=== PATIENT | female | born 1995 | race Caucasian/White ===

== ENCOUNTER 2019-03-23 12:53 | Emergency (ER) | payer OTHER ==
[2019-03-23 13:21] VITALS: BP 111/60; PULSE 121; TEMP 100.8; BMI 23.4
[2019-03-23] MEDS ORDERED: IBUPROFEN 600 MG TABLET (FP) PO ONE ×2 (14:14→14:20)
--- NOTE | 2019-03-23 14:14 | PDOC ---
History of Present Illness - General Chief Complaint: Cold Symptoms Stated Complaint: BACK PAIN/FEVER Time Seen by Provider: 03/23/19 13:29 History Source: Patient - History of Present Illness Initial Comments: 03/23/19 14:15 Chief complaint: Body aches and cough Patient 24-year-old female with history of asthma, previous hospitalizations but no ICU or intubation, has been on steroids in the past as documented in the EMR with 1 day of fever, body aches and cough. Patient states she was wheezing , used her nebulizer at home. Patient has not taken any antipyretics today. Patient is not in any respiratory distress GENERAL/CONSTITUTIONAL: No fever, weakness. dizziness HEAD, EYES, EARS, NOSE AND THROAT: No change in vision. No ear pain or discharge. No sore throat. CARDIOVASCULAR: No chest pain RESPIRATORY: No shortness of breath +cough GASTROINTESTINAL: No pain, nausea, vomiting, diarrhea or constipation GENITOURINARY: No dysuria MUSCULOSKELETAL: No neck or back pain SKIN: No rash NEUROLOGIC: No headache, vertigo, loss of consciousness, or loss of sensation. GENERAL: The patient is awake, alert, and fully oriented, in no acute distress. HEAD: Normal with no signs of trauma. EYES: Pupils equal, round and reactive to light, sclera anicteric, conjunctiva clear. ENT: pharynx: no erythema, no exudate, uvula midline NECK: supple CHEST: clear, nontender, rr ABD: soft, nontender BACK: no tenderness or signs of injury EXTREMITIES: Normal range of motion, no edema. NEUROLOGICAL: Normal speech, normal gait. SKIN: Warm, Dry Past History - Past Medical History Allergies/Adverse Reactions: Allergies Allergy/AdvReac Type Severity Reaction Status Date / Time No Known Allergies Allergy Verified 11/13/12 16:05 Home Medications: Ambulatory Orders Amox-Tr/K Cl [Augmentin 250-62.5mg/5mL Suspension -] 10 ml PO BID #200 ml Ibuprofen Oral Suspension [Motrin Oral Suspension -] 400 mg PO Q6H #1 bottle Prednisolone [Prelone] 15 mg PO BID #40 ml 11/13/12 Albuterol Sulfate [Albuterol Sulfate Hfa] 8.5 gm IH Q4H PRN #1 hfa.[email or web address] Fluticasone Propionate [Flovent Hfa] 44 mcg IH BID #1 inh 03/23/19 Oseltamivir Phosphate [Tamiflu] 75 mg PO BID #10 capsule 03/23/19 Asthma: Yes COPD: No - Psycho Social/Smoking Cessation Hx Smoking Status: No Smoking History: Current every day smoker Number of Cigarettes Smoked Daily: 3 Information on smoking cessation initiated: No Hx Alcohol Use: No Drug/Substance Use Hx: No *Physical Exam - Vital Signs Last Vital Signs Temp Pulse Resp BP Pulse Ox 100.8 F H 121 H 19 111/60 99 03/23/19 13:19 03/23/19 13:19 03/23/19 13:19 03/23/19 13:19 03/23/19 13:19 Medical Decision Making - Medical Decision Making 03/23/19 14:17 24-year-old with history of asthma as documented previously in HPI with 1 day of fever, cough, asthma symptoms. Use nebulizer at home last night. No wheezing now. No signs of respiratory distress or concerning clinical findings. Patient likely has flu versus upper respiratory viral illness. Given that is 1 day of symptoms, offered Tamiflu which patient said she will take. Will give Motrin here. No other work-up is indicated. Discussed issues, findings, results, applicable medications and treatments and follow-up. All these were understood and all questions were answered Discharge - Discharge Information Problems reviewed: Yes Clinical Impression/Diagnosis: Flu-like symptoms Condition: Stable Disposition: HOME - Admission No - Additional Discharge Information Prescriptions: Albuterol Sulfate [Albuterol Sulfate Hfa] 8.5 gm IH Q4H PRN #1 hfa.aer.ad PRN Reason: Wheezing Fluticasone Propionate [Flovent Hfa] 44 mcg IH BID #1 inh Oseltamivir Phosphate [Tamiflu] 75 mg PO BID #10 capsule - Follow up/Referral - Patient Discharge Instructions Patient Printed Discharge Instructions: Influenza Additional Instructions: Drink 2-3 L of water daily Take Tamiflu as directed Use albuterol, either inhaler or nebulizer every 4 hours for any wheezing Use Flovent twice a day, every day for at least the next week or 2 Take Tylenol 650 mg every 4 hours or Motrin 600 mg every 6 hours for fever and pain Return to the nearest ER if short of breath, unable to swallow or feeling sicker Followup with your doctor in one to 2 days - Post Discharge Activity
== END 2019-03-23 14:30 | disposition home or self-care (01) ==
LOC: JERFT 12:53
DX: J11.1 Influenza due to unidentified influenza virus with other respiratory manifestations (principal); J45.909 Unspecified asthma, uncomplicated; F17.210 Nicotine dependence, cigarettes, uncomplicated
CPT/HCPCS: 99281-25

== ENCOUNTER 2020-08-16 00:37 | Emergency (ER) | payer OTHER ==
[2020-08-16] MEDS: ALBUTEROL SO4 2.5/IPRATROPIUM 0.5 INH SOL 3 ML VIAL.NEB. NEB SCH (01:14)
[2020-08-16 01:17] VITALS: BMI 19.2
[2020-08-16] MEDS ORDERED: methylPREDNISolone NA SUCC 125 MG/2 ML VIAL IVPB ONE (02:30)
[2020-08-16] MEDS ORDERED: methylPREDNISolone NA SUCC 125 MG/2 ML VIAL ONE (02:33)
[2020-08-16] MEDS: ALBUTEROL SO4 0.083% IH SOL 2.5 MG/3 ML VIAL.NEB. NEB SCH (02:45)
[2020-08-16 02:52] LABS: BASO % 0.5 % (0-2.0); EOS % 1.3 % (0-4.5); HEMATOCRIT 36.2 % (32.4-45.2); HEMOGLOBIN 12.4 GM/dL (10.7-15.3); LYMPH % 15.7 % (8-40); MCHC 34.3 g/dl (32.0-36.0); MEAN CELL VOLUME 87.4 fl (80-96); MEAN PLT VOLUME 8.1 fl (7.5-11.1); MONO % 13.1 % (3.8-10.2); NEUT % 69.4 % (42.8-82.8); PLATELET COUNT 199 10^3/uL (134-434); RBC 4.14 M/mm3 (3.60-5.2); RDW 12.9 % (11.6-15.6); WHITE BLOOD COUNT 4.8 K/mm3 (4.0-10.0)
[2020-08-16 03:12] LABS: ALBUMIN 3.6 g/dl (3.4-5.0); BLOOD UREA NITROGEN 9.8 mg/dL (7-18); CALCIUM 8.5 mg/dL (8.5-10.1)
[2020-08-16 03:16] LABS: CREATININE 0.7 mg/dL (0.55-1.3)
[2020-08-16 03:17] LABS: BILIRUBIN,TOTAL 0.2 mg/dL (0.2-1); TOT PROT 6.8 g/dl (6.4-8.2)
[2020-08-16] MEDS ORDERED: POTASSIUM CHLORIDE TABS 20 MEQ TABLET.ER (FP) PO ONE ×2 (05:05→05:13)
[2020-08-16] MEDS ORDERED: ACETAMINOPHEN 1000 MG/100 ML VIAL (NON FORMULARY) IVPB ONE (05:09)
[2020-08-16] MEDS ORDERED: SODIUM CHLORIDE 0.9% 500 ML INFUS.BAG IV ONE ×2 (05:09→07:04)
[2020-08-16] MEDS ORDERED: ALBUTEROL SO4 2.5/IPRATROPIUM 0.5 INH SOL 3 ML VIAL.NEB. NEB ONE (05:24)
[2020-08-16 07:31] VITALS: TEMP 98.2
[2020-08-16 08:58] VITALS: BP 117/71; PULSE 103
== END 2020-08-16 08:55 | disposition home or self-care (01) ==
LOC: JER 00:37
PROC: 3E0333Z Introduction of Anti-inflammatory into Peripheral Vein, Percutaneous Approach (ICD-10-PCS; principal; 2020-08-16)
PROC: 3E0F7GC Introduction of Other Therapeutic Substance into Respiratory Tract, Via Natural or Artificial Opening (ICD-10-PCS; 2020-08-16)
PROC: 3E033GC Introduction of Other Therapeutic Substance into Peripheral Vein, Percutaneous Approach (ICD-10-PCS; 2020-08-16)
DX: J45.901 Unspecified asthma with (acute) exacerbation (principal)
CPT/HCPCS: 36415; 71045-TC-FY; 80053; 85025; 86308; 93005; 93010; 99285-25; C9803; J0131; U0003; U0005